=== PATIENT | male | born 1955 | race Caucasian/White ===

== ENCOUNTER 2020-06-13 15:51 | Emergency (ER) | payer BC ==
[2020-06-13] MEDS ORDERED: Famotidine 20 MG TAB ONE (16:10)
[2020-06-13] MEDS ORDERED: predniSONE 20 MG TAB ONE (16:10)
== END 2020-06-13 16:12 | disposition home or self-care (01) ==
LOC: NAV ERS 15:51
DX: T63.461A Toxic effect of venom of wasps, accidental (unintentional), initial encounter (principal); E11.9 Type 2 diabetes mellitus without complications; I10 Essential (primary) hypertension
CPT/HCPCS: 99282; J7512